=== PATIENT | female | born 1960 | race Caucasian/White ===

== ENCOUNTER 2018-01-22 12:02 | Inpatient (IN) | payer OTHER ==
[~2018-01-22] VITALS: Ht 165.1 cm; Wt 65.0 kg
[~2018-01-22 12:02] MED LIST: AMIT10 PO; DIPH25; GABA300; Golytely Packe1 EACH PO; HYDACE5 PO; MULVITA; PREG50; PROM25 PO; SUMA25; Thera-M1 EACH PO
[2018-01-22] MEDS ORDERED: SUMA25 PO (12:25)
[2018-01-22] MEDS ORDERED: Zantac150 MG PO (12:25)
[2018-01-22 13:22] LABS: BASOPHILS ABSOLUTE AUTO 0.04 K/mm3 (0.00-0.23); BASOPHILS PERCENT AUTO 1 % (0-2); EOSINOPHILS ABSOLUTE AUTO 0.09 K/mm3 (0.00-0.68); EOSINOPHILS PERCENT AUTO 1 % (0-6); Hematocrit 31.2 % (33.0-51.0); Hemoglobin 10.4 g/dL (11.5-16.0); IMMATURE GRAN ABSOLUTE AUTO 0.02 K/mm3 (0.00-0.10); IMMATURE GRAN PERCENT AUTO 0 % (0-1); LYMPHOCYTES ABSOLUTE AUTO 1.56 K/mm3 (0.84-5.20); LYMPHOCYTES PERCENT AUTO 24 % (21-46); MONOCYTES ABSOLUTE AUTO 0.37 K/mm3 (0.16-1.47); MONOCYTES PERCENT AUTO 6 % (4-13); Mean Corpuscular HGB 29.5 pg (26.0-34.0); Mean Corpuscular HGB Conc 33.3 g/dL (31.5-36.5); Mean Corpuscular Volume 88 fL (80-100); Mean Platelet Volume 8.9 fL (9.1-12.4); NEUTROPHILS ABSOLUTE AUTO 4.53 K/mm3 (1.96-9.15); NEUTROPHILS PERCENT AUTO 69 % (41-73); Platelet Count 396 K/mm3 (150-400); RDW Coefficient Variation 14.2 % (11.7-14.2); RDW Standard Deviation 44.4 fL (35.1-46.3); Red Blood Cell Count 3.53 M/mm3 (3.80-5.20); White Blood Cell Count 6.61 K/mm3 (4.00-11.30)
[2018-01-22 13:41] LABS: Alanine Aminotransfer (ALT/SGP 16 U/L (12-78); Albumin, Blood 4.1 g/dL (3.4-5.0); Albumin/Globulin Ratio 1.1 (0.8-1.8); Alk Phos 87 U/L (50-136); Anion Gap 8 mmol/L (6-16); Aspartate Aminotrans (AST/SGOT 21 U/L (12-37); Bilirubin, Total 0.3 mg/dL (0.1-1.0); Blood Urea Nitrogen 14 mg/dL (8-24); Bun/Creatinine Ratio 18.6 (12.0-20.0); CO2, Blood 28 mmol/L (21-32); Chloride, Blood 105 mmol/L (98-108); Creatinine, Blood 0.75 mg/dL (0.40-1.00); Globulin, Blood 3.8 g/dL (2.2-4.0); Glomerular Filtration Rate >60 (60-); Glucose, Blood 97 mg/dL (70-99); Sodium, Blood 141 mmol/L (136-145); Total Protein, Blood 7.9 g/dL (6.4-8.2)
[2018-01-22 15:43] LABS: International Normalized Ratio 1.01; Prothrombin Time Results 10.4 Sec (9.7-11.5)
[2018-01-22 15:45] LABS: Troponin I <0.015 ng/mL (0.000-0.040)
[2018-01-22 17:37] LABS: Hematocrit 30.9 % (33.0-51.0); Hemoglobin 10.3 g/dL (11.5-16.0)
[2018-01-23 04:53] LABS: BASOPHILS ABSOLUTE AUTO 0.03 K/mm3 (0.00-0.23); BASOPHILS PERCENT AUTO 1 % (0-2); EOSINOPHILS ABSOLUTE AUTO 0.25 K/mm3 (0.00-0.68); EOSINOPHILS PERCENT AUTO 4 % (0-6); Hematocrit 27.5 % (33.0-51.0); Hemoglobin 9.4 g/dL (11.5-16.0); IMMATURE GRAN ABSOLUTE AUTO 0.01 K/mm3 (0.00-0.10); IMMATURE GRAN PERCENT AUTO 0 % (0-1); LYMPHOCYTES ABSOLUTE AUTO 1.84 K/mm3 (0.84-5.20); LYMPHOCYTES PERCENT AUTO 32 % (21-46); MONOCYTES ABSOLUTE AUTO 0.48 K/mm3 (0.16-1.47); MONOCYTES PERCENT AUTO 8 % (4-13); Mean Corpuscular HGB 30.1 pg (26.0-34.0); Mean Corpuscular HGB Conc 34.2 g/dL (31.5-36.5); Mean Corpuscular Volume 88 fL (80-100); Mean Platelet Volume 8.9 fL (9.1-12.4); NEUTROPHILS PERCENT AUTO 54 % (41-73); Platelet Count 338 K/mm3 (150-400); RDW Coefficient Variation 14.5 % (11.7-14.2); RDW Standard Deviation 44.7 fL (35.1-46.3); Red Blood Cell Count 3.12 M/mm3 (3.80-5.20); White Blood Cell Count 5.71 K/mm3 (4.00-11.30)
[2018-01-23 05:16] LABS: Anion Gap 7 mmol/L (6-16); Blood Urea Nitrogen 11 mg/dL (8-24); CO2, Blood 26 mmol/L (21-32); Calcium, Blood 8.4 mg/dL (8.5-10.1); Chloride, Blood 109 mmol/L (98-108); Creatinine, Blood 0.78 mg/dL (0.40-1.00); Glomerular Filtration Rate >60 (60-); Glucose, Blood 84 mg/dL (70-99); Sodium, Blood 142 mmol/L (136-145)
[2018-01-23] MEDS ORDERED: OMEPRAZOLE MAGN20 MG PO (17:29)
[2018-01-24] MEDS ORDERED: Ferrous Sulfat325 MG PO (16:08)
== END 2018-01-23 18:04 | disposition home or self-care (01) | DRG 379 ==
LOC: ER 12:02 → MEDS 12:03 → ENPENDDIS 01-23 17:27 → MEDS 01-23 18:04
PROVIDERS: Emergency Medicine; Internal Medicine
DX: K25.4 Chronic or unspecified gastric ulcer with hemorrhage (principal); M54.2 Cervicalgia; G43.909 Migraine, unspecified, not intractable, without status migrainosus; T39.315A Adverse effect of propionic acid derivatives, initial encounter; K31.4 Gastric diverticulum; G56.22 Lesion of ulnar nerve, left upper limb
CPT/HCPCS: 36415; 80048; 80053; 84484; 85014; 85018; 85025; 85610; 86850; 86900; 86901; 93005; 93010; 96374; 99285-25; C9113; J7030; J7120

== ENCOUNTER → 2018-07-10 | Outpatient (CLI) | payer OTHER ==
[~2018-07-10] MED LIST changes: +Ferrous Sulfat325 MG PO; +OMEPRAZOLE MAGN20 MG PO; +SUMA25 PO; +Zantac150 MG PO
== END | disposition home or self-care (01) ==
LOC: LAB EV 17:55 → LAB SHORT 17:55
DX: R30.0 Dysuria (principal)
CPT/HCPCS: 87077; 87086; 87186

== ENCOUNTER 2022-07-14 02:06 | Emergency (ER) | payer OTHER ==
[~2022-07-14] VITALS: Ht 165.1 cm; Wt 68.0 kg
[~2022-07-14 02:06] MED LIST changes: +METO10 PO; +Norco 7.5-3251 EACH PO; +ONDA4ODT MM; +Percocet 5-3251 EACH PO
[2022-07-14] MEDS ORDERED: GABA300 PO (05:32)
[2022-07-14] MEDS ORDERED: PRED20 PO (05:33)
[2022-07-14] MEDS ORDERED: ONDA4ODT MM (06:26)
== END 2022-07-14 06:49 | disposition home or self-care (01) ==
LOC: ER 02:06
DX: M51.16 Intervertebral disc disorders with radiculopathy, lumbar region (principal); Z88.8 Allergy status to other drugs, medicaments and biological substances; Z79.899 Other long term (current) drug therapy
CPT/HCPCS: 36415; 51798; 96374; 96375; 99284-25; A9270; J1170; J1885; J2405; J2765